=== PATIENT | female | born 1990 | race Two or more races ===

== ENCOUNTER 2024-10-07 07:20 | Day surgery (SDC) | payer MEDICAID, SELFPAY ==
[2024-10-04 11:41] VITALS: BMI 36.1
[2024-10-04 12:14] LABS: Collection Type, Urine Clean Catch
[2024-10-04 12:29] LABS: Basophils % (Auto) 0 % (0-2.5); Eosinophils # (Auto) 0.1 Thou/mm3 (0.0-0.5); Eosinophils % (Auto) 1 % (0-10); Hematocrit 40.6 % (36.0-46.0); Hemoglobin 13.2 g/dL (12.0-16.0); Immature Granulocytes % (Auto) 0 % (0-0); Immature Granulocytes Auto 0.02 Thou/mm3 (0.00-0.00); Lymphocytes # (Auto) 2.3 Thou/mm3 (1.0-4.8); Lymphocytes % (Auto) 28 % (10-50); Mean Corpuscular HGB Conc 32.5 g/dl (31.0-37.0); Mean Corpuscular Hemoglobin 26.6 pg (25.0-35.0); Mean Corpuscular Volume 82 fL (80-100); Monocytes # (Auto) 0.4 Thou/mm3 (0.0-0.8); Monocytes % (Auto) 5 % (0-12); Neutrophils # (Auto) 5.2 Thou/mm3 (1.8-7.7); Neutrophils % (Auto) 65 % (37-80); Nucleated Red Blood Cell % 0 /100 WBC (0); Platelet Count 246 Thou/mm3 (140-440); RDW Standard Deviation 36.4 fL (36.4-46.3); Red Blood Count 4.97 Miln/mm3 (4.00-5.20)
[2024-10-04 12:33] LABS: HCG Qualitative,Urine Negative
[2024-10-04 12:42] LABS: Bacteria,Urine Rare; Bilirubin,Urine Negative (Negative); Blood,Urine Negative (Negative); Clarity,Urine Clear (Clear/Hazy); Color,Urine Lt-Yellow (Lt Yel-Yel); Glucose, Urine Negative (Negative); Ketones,Urine Negative (Negative); Leukocyte Esterase,Urine Negative (Negative); Nitrite,Urine Positive (Negative); PH,Urine 5.5 (5.0-7.0); Protein,Urine Negative (Neg - Trace); RBC,Urine 2 /hpf (0-3); Specific Gravity,Urine 1.021 (1.001-1.035); Squamous Epithelial Cell,Urine 8 /hpf (0-5); Urobilinogen,Urine Negative mg/dL (0.0-1.0); WBC,Urine 2 /hpf (0-5)
[2024-10-04 12:44] LABS: Anion Gap 7 (7-16); BUN/Creatinine Ratio 13 Ratio (12-20); Blood Urea Nitrogen 9 mg/dL (9-23); Calcium 9.1 mg/dL (8.3-10.6); Chloride 107 mMol/L (98-107); Creatinine (Component) 0.7 mg/dL (0.6-1.3); Estimated Creatinine Clearance 117.7 mL/min (>60); Glucose 88 mg/dL (74-106); Osmolality,Calculated 277 (275-295); Potassium 3.8 mMol/L (3.4-5.1); Sodium 140 mMol/L (136-145); eGFR > 60 See Note
[2024-10-07] VITALS (9 sets, daily range): BP systolic 102–116; BP diastolic 67–82; PULSE 65–91; RESP 14–20; TEMP 36.4–37.2; O2SAT 98–100; BMI 36.3
--- NOTE | 2024-10-07 08:46 | SUR.PREOP ---
Patient expressed gratitude for prayer before their procedure.
--- NOTE | 2024-10-07 11:09 | SUR.PHASEI ---
1109 received pt to PACU from OR, pt waking up, oral airway in place, following verbal commands and able to lift head from pillow, on oxygen 6L via oxy mask, airway removed, pt tolerated well, BS clear. Abdomen soft, Dermabond dressings x 3 CDI. Report from Goyo BRYSON and Andrés MILLER.
--- NOTE | 2024-10-07 11:26 | ESOP_ITS ---
Operative Note - BAKER CHEF Procedure Date of procedure: 10/07/24 Procedure Performed: laparoscopic bilateral tubal removal and lysis of adhesions Indication: desires female sterilization by laparoscopic removal of both Fallopian tubes Pre-Op diagnosis: desires female sterilization Post-Op diagnosis: same Anesthesia type: General Procedure description: after an informed consent , patient brought to OR and received general anesthesia and prepped and draped in usual sterile fashion after receiving anesthesia and Bladder staright cathetrised, received SSI prophylaxis. pelvic exam revelas antevereted uterus and rest is normal.Time out is done prior to starting the surgery. Kronners intrauterine device is placed in uterus and balloon inflated and left in Then dirty gloves removed and then the laparoscopic procedure began. A direct trocar entry was made after tenting the anterior abdominal wall and a small skin incision at the umblicus, trocar had to be changed to a long one and peritoneal cavity entered atraumatically . Then trocar removed and sleeve left in with the laparoscope in place. CO2 gas is insufflated, the appropriate pressure of 15 cm of mercury is obtained. A 5 mm trocar entry was made 4 fingerbreadths above and medial to the anterior superior iliac spine on both sides under direct visualization. Then with the certified nursing assistant with the help of a grasper holes the right fallopian tube near its fimbrial end, the surgeon from the left lateral port, uses the harmonic scalpel to clamp seal and cut the right fallopian tube from the femoral land to 1-1/2 cm lateral to the cornual junction hemostasis is good and that right fallopian tube is removed from the trocar port. For the left side to visualize the entire left fallopian tube some omentum adhesions to the peritoneum visceral on the left side are lysed and then the same process is done with the left fallopian tube and the left fallopian tube is removed entirely except a 1-1/2 cm part proximal to the uterine fundus. Hemostasis is present at the surgical site. Pictures are taken. Abdomen is desufflated. This is followed by closure of the entry incisions at all 3 sites after removal of the trocars with 4-0 Monocryl and Dermabond. The pelvic instruments are removed. Instrument and sponge and needle count is correct. Patient was sent to PACU in a stable condition. Specimen: left tube and right tube Estimated blood loss (ml): 10 Findings: uteus anteverted , some adhesions with omentum and peritoneum on L side and had to be lysed to expose and visualize the L tube, evidence of stellate scarring and blue spots on left uterosacral and posterior left sided broad ligament s/o endometriosis / rest normal Complications: none Narrative: see procedure Surgical staff Operation Date: 10/07/24 09:30 Case Staff INDUSTRIAL ELECTRICIAN: Goyo Machado RNmachine operator picker: Justine Coates Diagnosis Discharge Diagnosis (1) S/P laparoscopic surgery: Status: Acute Problem details: had laparoscopic Bilateral tubal removal and lysis of adhesions (2) Encounter for female sterilization procedure: Status: Acute Problem details: both Fallopian tubes were removed for female sterilization Problem List Completed Was Problem List Reviewed/Reconciled?: Yes
--- NOTE | 2024-10-07 11:49 | SUR.PHASEII ---
1149 Report given to Kait Felix RN, pt sitting up eating jello and drinking juice, reports lower abdominal pain 2/10 and tolerable. VSS. Dressings remain CDI. Preparing pt for DC home.
--- NOTE | 2024-10-07 12:21 | SUR.PHASEII ---
1149: pt awake, alert, able to follow commands, breathing unlabored, VS stable, dressing to abdomen clean, dry, and intact, peripad in place-clean and dry, report from Asya MILLER and Kait Sears RN 1221: pt awake, alert, able to follow commands, breathing unlabored, VS stable, dressing to abdomen clean, dry, and intact, peripad in place-clean and dry, discharge instructions given with daughter present, all questions answered, pt discharged via wheelchair with all belongings and copies of discharge paperwork.
== END 2024-10-07 12:21 | disposition home or self-care (01) ==
PROVIDERS: PCP Nurse Practitioner Primary Care; Referring Provider Obstetrics & Gynecology; Visit Provider Obstetrics & Gynecology
PROC: (CPT 58670; principal; 2024-10-07 09:30)
DX: Z30.2 Encounter for sterilization (principal)
CPT/HCPCS: 58661; 36415; 80048; 81001; 81025; 85025; A4217; A4649; J0131; J0330; J1100; J2405; J2704; J3010; J3490